=== PATIENT | female | born 1975 | race African-American/Black ===

== ENCOUNTER 2020-01-08 04:51 | Day surgery (SDC) | payer OTHER ==
[2020-01-04 09:28] VITALS: BMI 30.8
[2020-01-08] MEDS ORDERED: ROCURONIUM BROMIDE 50 MG/5 ML SYRINGE ONE (07:31)
[2020-01-08] MEDS ORDERED: DEXAMETHASONE SOD PHOSPHATE 4 MG/1 ML VIAL ONE (07:31)
[2020-01-08] MEDS ORDERED: MIDAZOLAM HCL 2 MG/2 ML SINGLE DOSE VIAL ONE ×2 (07:31→09:44)
[2020-01-08] MEDS ORDERED: PROPOFOL 20 ML ONE ×2 (07:31→09:43)
[2020-01-08] MEDS ORDERED: DESFLURANE GAS 240 ML BOTTLE IH ONE (07:32)
--- NOTE | 2020-01-08 08:18 | HP ---
History & Physical Update - History History: No Change (Retained IUD, desired sterilization, menorrhagia) - Physical Physical: No Change - Assessment Assessment: No Change - Plan Plan: No Change (Hysteroscopy, removal of retained IUD, D&C, laparoscopic b/l salpingectomy.)
[2020-01-08] MEDS ORDERED: ceFAZolin SODIUM 1 GM VIAL IVPB ONE (08:28)
[2020-01-08] MEDS ORDERED: ceFAZolin SODIUM 1 GM VIAL ONE (08:28)
[2020-01-08] MEDS ORDERED: BUPIVACAINE HCL/PF 0.5% (5 MG/ML) 30 ML VIAL IJ ONE ×4 (08:43→09:19)
[2020-01-08] MEDS ORDERED: NEOSTIGMINE METHYLSULFATE 0.5 MG/ML - 10 ML MDV ONE (09:01)
--- NOTE | 2020-01-08 09:40 | OP ---
Operative Note - Note: Operative Date: 01/08/20 Pre-Operative Diagnosis: Retained IUD, Menorrhagia, Sterilization, obesity Operation: Hysteroscopy, removal of foreign body/IUD, D&C, laparoscopic right salpingectomy. Findings: IUD w/in uterine cavity Normal uterine cavity Laparoscopy showed multiple dense adhesions of bowel and omentum to anterior abdominal wall and pelvic loaiza Surgically absent left Fallopian tube Normal ovaries b/l Survey of the bowel, liver, stomach revealed no pathology Post-Operative Diagnosis: Same as Pre-op Surgeon: Landry Faith Stockroom Helper: Sophia Neville Anesthesiologist/MARKETING CAMPAIGN ANALYST: Letha Coleman Anesthesia: General Specimens Removed: Right fallopian tube Estimated Blood Loss (mls): 5 Drains & Tubes with Location: Clark Cath Drains, Volume Out (mls): 50 Blood Volume Replaced (mls): 0 Fluid Volume Replaced (mls): 1,000 Operative Report Dictated: Yes
[2020-01-08] MEDS ORDERED: oxyCODONE HCL 5 MG TABLET PO PRN (10:23)
[2020-01-08] MEDS ORDERED: ONDANSETRON 4 MG/2 ML VIAL IVPUSH PRN (10:23)
[2020-01-08] MEDS ORDERED: LACTATED RINGERS SOLUTION 1,000 ML IV SCH (10:30)
[2020-01-08 11:01] VITALS: TEMP 97.1
[2020-01-08 12:18] VITALS: BP 127/83; PULSE 98
--- NOTE | 2020-01-08 18:30 | OP ---
DATE OF OPERATION: 01/08/2020 PREOPERATIVE DIAGNOSIS: Retained intrauterine device. Menorrhagia. Cervical sterilization. Obesity. POSTOPERATIVE DIAGNOSIS: Retained intrauterine device. Menorrhagia. Cervical sterilization. Obesity. PROCEDURE: Hysteroscopy, removal of foreign body (intrauterine device), dilation and curettage, laparoscopic right salpingectomy. SURGEON: Landry Faith MD. SOAKING TANK WORKER: Sophia Neville MD. ANESTHESIOLOGIST: Letha Coleman MD. ANESTHESIA: General endotracheal. COMPLICATIONS: None. ESTIMATED BLOOD LOSS: 5 mL. INTRAVENOUS FLUIDS: 1000 mL. URINE OUTPUT: 50 mL of clear urine at the end of the procedure. FINDINGS: Examination under anesthesia revealed an anteverted uterus with no pelvic or adnexal masses. However, examination was limited by patient's body habitus. The hysteroscopy revealed a normal uterine cavity with an intrauterine IUD. The IUD was removed without difficulty, and the normal uterine cavity was noted. The laparoscopy revealed multiple dense adhesions of bowel and omentum to the anterior abdominal wall as well as adhesions onto the lateral abdominal and pelvic loaiza. The left fallopian tube was surgically absent, consistent with the patient's history of previous ectopic, normal ovaries were noted bilaterally. Survey of the bowel, liver, and stomach revealed no pathology. DESCRIPTION OF PROCEDURE: The patient was met preoperatively. The risks, benefits, and alternatives of the surgery were discussed in detail. The consent form was reviewed and discussed. The patient had asked appropriate questions, and all the questions were answered. The patient verbalized her understanding and requested to proceed with the surgery. The patient was brought to the OR with the IV running. She was placed on the surgical table in the supine position. The general endotracheal anesthesia was achieved without difficulty. The patient was then placed in a dorsal lithotomy position using adjustable Fortino stirrups. She was examined under anesthesia with the findings as described above. The timeout was then conducted in a standard fashion. The patient was prepped and draped in the usual sterile fashion. A weighted speculum was introduced inside the vagina with good visualization of the cervix. The cervical os was noted to be stenotic. The cervix was grasped with a single-toothed tenaculum. The cervical os was gently dilated to accommodate a size 23 Arredondo dilator. A hysteroscope was introduced into the uterine cavity with the findings as described above. IUD string was grasped and retracted. The IUD was then removed without complications. A sharp uterine curettage was performed, and the tissue was sent to pathology for evaluation. At that point the instruments were removed from the patient, and the surgeon proceeded with the laparoscopy. A 5-mm intraumbilical incision was made with the knife. A Visiport trocar was introduced into the peritoneal cavity under direct visualization. A survey of the abdomen and peritoneal cavity revealed multiple dense adhesions of the omentum and bowel to the anterior abdominal wall as well as to lateral pelvic sidewalls. A 2nd 5-mm incision was made in the left lower quadrant, and a 5-mm trocar was introduced under direct visualization. The 3rd incision was made in the right lower quadrant, and a 5-mm trocar was also introduced under direct visualization. At that point, adhesiolysis was done to allow for visualization of the fallopian tubes. The left fallopian tube was absent, consistent with the patient's previous history of ectopic . The right fallopian tube appeared to be within normal limits. Both ovaries were observed to be within normal limits. Additional careful adhesiolysis was performed to allow for a full visualization of the right fallopian tube. A LigaSure device was then used to excise the fallopian tube completely. The fallopian tube was removed and sent to pathology for evaluation. Survey of the abdomen, pelvis revealed no injuries. The visualized portion of the bowel, stomach, and liver revealed no pathology. At that point, the peritoneum was reduced. All of the instruments were removed from the patient. Good hemostasis was noted. Sponge, lap, needle counts were correct. The incisions were closed using a 4-0 Biosyn suture for the skin. The HUMI manipulator and the Clark catheter were removed. The patient was transferred to recovery room in stable condition and awake. Corwin [id number]
--- NOTE | 2020-01-09 13:56 | PATH ---
Surgical Pathology Report Patient Name: MOISES FORMAN [facility]. Rec. #: [id number] /Age/Gender: 1975 (Age: 44) / F Account: [id number] Location: [facility] SURGICAL Taken: 01/08/2020 Received: 01/08/2020 Reported: 01/09/2020 Physicians: Landry Faith M.D. Specimen(s) Received A: REMOVED I.U.D. B: ENDOMETRIAL CURETTINGS C: RIGHT FALLOPIAN TUBE Clinical History Encounter for sterilization Final Diagnosis A. INTRAUTERINE DEVICE (IUD), REMOVAL: FOREIGN BODY MATERIAL CONSISTENT WITH INTRAUTERINE DEVICE (IUD). MACROSCOPIC DIAGNOSIS. B. ENDOMETRIAL CURETTINGS, DILATION AND CURETTAGE: PROLIFERATIVE ENDOMETRIUM WITH PATCHY MILD CHRONIC FOCAL ACUTE ENDOMETRITIS. ENDOCERVICAL MUCOSA WITH ACUTE CERVICITIS, RARE FIBROMUSCULAR TISSUE, AND MINUTE SQUAMOUS EPITHELIUM. C. FALLOPIAN TUBE, RIGHT, PARTIAL EXCISION: FULL LUMINAL PORTION OF UNREMARKABLE FALLOPIAN TUBE. Electronically Signed Jeanne Restrepo M.D. Gross Description A. Received fresh labeled "IUD," is a 3.5 cm in length T-shaped device with attached string, consistent with an IUD. No soft tissue is present. No sections are submitted, gross only. B. Received in formalin labeled "endometrial curettings," is a 3.8 x 3.0 x 0.5 cm aggregate of fine red soft tissue fragments. The formalin is filtered and the specimen is entirely submitted in 2 cassettes. C. Received in formalin labeled "right fallopian tube," is a 4.5 cm in length fimbriated fallopian tube. The outer surface is fine-pink and smooth. Sectioning reveals an unremarkable lumen. Hydrodynamics Teacher sections are submitted in 2 cassettes as follows: 1-fimbria; 2-cross sections of fallopian tube. /01/08/2020 saudi01/08/2020
== END 2020-01-08 13:53 | disposition home or self-care (01) ==
LOC: JASU-SURG 04:51
PROVIDERS: ATTEND Obstetrics & Gynecology
PROC: 0UC98ZZ Extirpation of Matter from Uterus, Via Natural or Artificial Opening Endoscopic (ICD-10-PCS; 2020-01-08)
PROC: 0UDB7ZX Extraction of Endometrium, Via Natural or Artificial Opening, Diagnostic (ICD-10-PCS; 2020-01-08)
PROC: 0UJD8ZZ Inspection of Uterus and Cervix, Via Natural or Artificial Opening Endoscopic (ICD-10-PCS; 2020-01-08)
PROC: 0UT54ZZ Resection of Right Fallopian Tube, Percutaneous Endoscopic Approach (ICD-10-PCS; principal; 2020-01-08 08:00)
DX: Z30.2 Encounter for sterilization (principal); Z30.432 Encounter for removal of intrauterine contraceptive device; N92.0 Excessive and frequent menstruation with regular cycle; N73.6 Female pelvic peritoneal adhesions (postinfective)
CPT/HCPCS: 36415; 84703; 86850; 86900; 86901; 88300-TC; 88302-TC; 88305-TC; 94760